=== PATIENT | female | born 1945 ===

== ENCOUNTER 2020-07-07 15:15 | Inpatient (IN) | payer OTHER ==
--- NOTE | 2020-07-07 16:06 | XRay Report ---
CHEST 2 VIEWS INDICATION / CLINICAL INFORMATION: Dyspnea. FINDINGS: SUPPORT DEVICES: None. HEART / MEDIASTINUM: No significant abnormality. LUNGS / PLEURA: Severe multifocal airspace pneumonia identified throughout both lungs. Signer Name: Rahul Caldwell MD Signed: 07/07/2020 4:01 PM Workstation Name: [id number]
[2020-07-07 16:26] LABS: Basophils % (Auto) 0.1 % (0.0-1.8); Eosinophils % (Auto) 0.1 % (0.0-4.3); Hematocrit 40.3 % (30.3-42.9); Hemoglobin 13.7 gm/dl (10.1-14.3); Lymphocytes # (Auto) 1.2 K/mm3 (1.2-5.4); Lymphocytes % (Auto) 18.5 % (13.4-35.0); Mean Corpuscular HGB Conc 34 % (30-34); Mean Corpuscular Volume 92 fl (79-97); Monocytes # (Auto) 0.7 K/mm3 (0.0-0.8); Monocytes % (Auto) 10.6 % (0.0-7.3); Platelet Count 247 K/mm3 (140-440); Red Blood Count 4.39 M/mm3 (3.65-5.03)
[2020-07-07 16:37] LABS: Alanine Aminotransferase 61 units/L (7-56); Albumin 3.5 g/dL (3.9-5); Blood Urea Nitrogen 11 mg/dL (7-17); Calcium 8.9 mg/dL (8.4-10.2); Hemolysis Index 3
[2020-07-07 16:38] LABS: BUN/Creatinine Ratio 18
[2020-07-07] MEDS ORDERED: SODIUM CHLORIDE 0.9% 1000 ML 1,000 ML IV ONE (19:45)
[2020-07-07] MEDS ORDERED: AZITHROMYCIN/NS 500 MG/250 ML 500 MG/250 ML BAG IV ONE (19:45)
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
[2020-07-07] MEDS ORDERED: cefTRIAXone/NS 1 GM/50 ML 1 GM/50 ML BAG IV ONE (20:25)
[2020-07-07 21:07] LABS: C-Reactive Protein 9.4 mg/dL (0.00-1.30)
[2020-07-07] MEDS ORDERED: ONDANSETRON 4 MG/2 ML INJ IV PRN (21:45)
[2020-07-07] MEDS ORDERED: oxyCODONE /ACETAMINOPHEN 5-325MG TAB PO PRN (21:45)
[2020-07-07] MEDS ORDERED: ACETAMINOPHEN 325 MG TAB PO PRN (21:45)
[2020-07-07] MEDS ORDERED: ALBUTEROL 2.5 MG/3 ML NEBU IH PRN (21:45)
[2020-07-07] MEDS ORDERED: POTASSIUM CHLORIDE ER 10 MEQ TAB PO ONE (21:48)
[2020-07-07] MEDS ORDERED: cefTRIAXone/NS 1 GM/50 ML 1 GM/50 ML BAG IV SCH (22:00)
[2020-07-07] MEDS ORDERED: ENOXAPARIN 60 MG/0.6 ML INJ SUB-Q SCH (22:00)
--- NOTE | 2020-07-07 22:35 | Cat Scan Report ---
CTA CHEST WITH IV CONTRAST INDICATION / CLINICAL INFORMATION: Shortness of breath, elevated D-dimer, Pneumonia. TECHNIQUE: Axial CT images were obtained through the chest after injection of 30 cc IV contrast. 3 plane MIP and /or 3D reconstructions were produced. All CT scans at this location are performed using CT dose reduc tion for ALARA by means of automated exposure control. COMPARISON: 07/07/2020 FINDINGS: PULMONARY ARTERIES: No pulmonary emboli. THORACIC AORTA: No significant abnormality. HEART: No significant abnormality. CORONARY ARTERIES: No significant calcification. PLEURA: No pleural effusion. No pneumothorax. LYMPH NODES: No significant adenopathy. LUNGS: There are multiple areas of pulmonary opacities/groundglass opacities throughout both lungs in a pattern most consistent with multifocal viral pneumonia. Consolidated airspace disease is noted wi thin both lower lobes posteriorly. ADDITIONAL FINDINGS: None. UPPER ABDOMEN: No acute findings. SKELETAL STRUCTURES: No significant osseous abnormality. IMPRESSION: 1. No CT evidence for pulmonary embolism. 2. Bilateral pulmonary groundglass opacities and bilateral lower lobe consolidation consistent with m ultifocal viral pneumonia. Signer Name: Tasha Cormier MD Signed: 07/07/2020 10:31 PM Workstation Name: [id number]
[2020-07-08] MEDS: dexAMETHasone 4 MG/ML VIAL IV SCH ×3 (00:02→22:27)
[2020-07-08] MEDS: DOCUSATE SODIUM 100 MG CAP PO SCH ×3 (00:03→22:28)
--- NOTE | 2020-07-08 00:05 | History and Physical Report ---
History of Present Illness Date of examination: 07/07/20 Date of admission: 07/07/20 21:50 Chief complaint: SOB History of present illness: 74-year-old female with history of hypertension questionable lung disease due to childhood environmental exposure who presents to [facility] ED with complaints of shortness of breath x2 weeks. States that she has been experiencing shortness of breath which is worse with exertion for the past 2 weeks. Endorses nonproductive intermittent cough. Denies fever, chills, short, chest pains, headache, loss of smell, loss of taste, nausea, vomiting, diarrhea, generalized weakness, or sick contact Past History Past Medical History: hypertension, other (?? childhood lung disease) Past Surgical History: No surgical history Social history: lives with family, full code. denies: smoking, alcohol abuse, IV drug use Family history: hypertension Medications and Allergies Allergies Allergy/AdvReac Type Severity Reaction Status Date / Time No Known Allergies Allergy Unverified 07/07/20 15:32 Active Meds: Active Medications Acetaminophen (Acetaminophen 325 Mg Tab) 650 mg PO Q4H PRN PRN Reason: Pain MILD(1-3)/Fever >100.5/KWONG Albuterol (Albuterol 2.5 Mg/3 Ml Nebu) 2.5 mg IH Q3HRT PRN PRN Reason: Shortness Of Breath Dexamethasone (Dexamethasone 4 Mg/Ml Vial) 4 mg IV Q12HR [facility] Last Admin: 07/08/20 00:02 Dose: 4 mg Documented by: Docusate Sodium (Docusate Sodium 100 Mg Cap) 100 mg PO BID [facility] Last Admin: 07/08/20 00:03 Dose: 100 mg Documented by: Enoxaparin Sodium (Enoxaparin 40 Mg/0.4 Ml Inj) 40 mg SUB-Q QDAY@2200 [facility]; Protocol Azithromycin 500 mg/ Sodium (Chloride) 250 mls @ 250 mls/hr IV Q24HR [facility]; Protocol Ceftriaxone Sodium (Rocephin/Ns 1 Gm/50 Ml) 1 gm in 50 mls @ 100 mls/hr IV Q 12HR [facility]; Protocol Ondansetron HCl (Ondansetron 4 Mg/2 Ml Inj) 4 mg IV Q6H PRN PRN Reason: Nausea And Vomiting Oxycodone/Acetaminophen (Oxycodone /Acetaminophen 5-325mg Tab) 1 tab PO Q6H PRN PRN Reason: Pain, Moderate (4-6) Sodium Chloride (Sodium Chloride 0.9% 10 Ml Flush Syringe) 10 ml IV BID [facility] Sodium Chloride (Sodium Chloride 0.9% 10 Ml Flush Syringe) 10 ml IV PRN PRN PRN Reason: LINE FLUSH Review of Systems All systems: negative (As noted in HPI) Exam - Physical Exam Narrative exam: Physical exam General appearance: Present: No acute distress, alert and oriented 3, older adult female - EENT Eyes: Present: PERRL, EOM intact ENT: hearing intact, normal dentition - Neck Neck: Present: supple, normal ROM - Respiratory Respiratory effort: Slightly labored with exertion Respiratory: Diminished bases, rhonchi - Cardiovascular Heart rate: 90 (bpm) Rhythm: Sinus Heart Sounds: Present: S1 & S2. Absent: rub, click - Extremities Extremities: no ischemia, pulses intact, - Peripheral Assessment Peripheral Pulses: within normal limits - Abdominal General gastrointestinal: soft, non-tender, normal bowel sounds - Integumentary Integumentary: Present: warm, dry - Musculoskeletal Musculoskeletal: Able to move all extremities -Neurological Neurological: CN II-XII intact - Psychiatric Psychiatric: Appropriate for situation ,cooperative - Constitutional Vitals: Temp Pulse Resp BP Pulse Ox 99.3 F 72 17 147/74 94 07/07/20 20:22 07/07/20 20:22 07/07/20 20:22 07/07/20 20:22 07/07/20 20:22 Results - Labs CBC & Chem 7: 07/07/20 16:02 07/07/20 19:45 Labs: Laboratory Last Values WBC 6.3 K/mm3 (4.5-11.0) 07/07/20 16:02 RBC 4.39 M/mm3 (3.65-5.03) 07/07/20 16:02 Hgb 13.7 gm/dl (10.1-14.3) 07/07/20 16:02 Hct 40.3 % (30.3-42.9) 07/07/20 16:02 MCV 92 fl (79-97) 07/07/20 16:02 MCH 31 pg (28-32) 07/07/20 16:02 MCHC 34 % (30-34) 07/07/20 16:02 RDW 13.0 % (13.2-15.2) L 07/07/20 16:02 Plt Count 247 K/mm3 (140-440) 07/07/20 16:02 Lymph % (Auto) 18.5 % (13.4-35.0) 07/07/20 16:02 [place] % (Auto) 10.6 % (0.0-7.3) H 07/07/20 16:02 Eos % (Auto) 0.1 % (0.0-4.3) 07/07/20 16:02 Baso % (Auto) 0.1 % (0.0-1.8) 07/07/20 16:02 Lymph # (Auto) 1.2 K/mm3 (1.2-5.4) 07/07/20 16:02 [place] # (Auto) 0.7 K/mm3 (0.0-0.8) 07/07/20 16:02 Eos # (Auto) 0.0 K/mm3 (0.0-0.4) 07/07/20 16:02 Baso # (Auto) 0.0 K/mm3 (0.0-0.1) 07/07/20 16:02 Seg Neutrophils % 70.7 % (40.0-70.0) H 07/07/20 16:02 Seg Neutrophils # 4.4 K/mm3 (1.8-7.7) 07/07/20 16:02 D-Dimer 423.42 ng/mlDDU (0-234) H 07/07/20 19:45 Sodium 141 mmol/L (137-145) 07/07/20 16:02 Potassium 3.2 mmol/L (3.6-5.0) L 07/07/20 16:02 Chloride 102.8 mmol/L (98-107) 07/07/20 16:02 Carbon Dioxide 28 mmol/L (22-30) 07/07/20 16:02 Anion Gap 13 mmol/L 07/07/20 16:02 BUN 11 mg/dL (7-17) 07/07/20 16:02 Creatinine 0.6 mg/dL (0.6-1.2) 07/07/20 16:02 Estimated GFR > 60 ml/min 07/07/20 16:02 BUN/Creatinine Ratio 18 % 07/07/20 16:02 Glucose 114 mg/dL (65-100) H 07/07/20 19:45 Calcium 8.9 mg/dL (8.4-10.2) 07/07/20 16:02 Ferritin 717.3 ng/mL (10.0-200.0) H 07/07/20 19:45 Total Bilirubin 0.30 mg/dL (0.1-1.2) 07/07/20 16:02 AST 76 units/L (5-40) H 07/07/20 16:02 ALT 61 units/L (7-56) H 07/07/20 16:02 Alkaline Phosphatase 136 units/L (35-129) H 07/07/20 16:02 Lactate Dehydrogenase 368 units/L (91-180) H 07/07/20 19:45 C-Reactive Protein 9.40 mg/dL (0.00-1.30) H 07/07/20 19:45 Total Protein 6.4 g/dL (6.3-8.2) 07/07/20 16:02 Albumin 3.5 g/dL (3.9-5) L 07/07/20 16:02 Albumin/Globulin Ratio 1.2 % 07/07/20 16:02 - Diagnostic Impressions Diagnostic Impressions: CT Chest: IMPRESSION: 1. No CT evidence for pulmonary embolism. 2. Bilateral pulmonary groundglass opacities and bilateral lower lobe consolidation consistent with multifocal viral pneumonia. CXR: LUNGS / PLEURA: Severe multifocal airspace pneumonia identified throughout both lungs. Chavez/IV: IV Catheter Type [Left INT / Saline Lock Antecubital] Assessment and Plan Assessment and plan: 74-year-old female with history of hypertension questionable lung disease due to childhood environmental exposure who presents to [facility] ED with complaints of shortness of breath x2 weeks. Suspected Covid 19 virus infection -Complains of shortness of breath worse with exertion x2 weeks -CXR shows very multifocal airspace disease -Isolated, initiate SAVANNAH -f/u labs -Start Decadron -ID consult pending -Supportive care Pneumonia -Likely due to to Covid 19 virus infection -CT chest shows Bilateral pulmonary groundglass opacities and bilateral lower lobe consolidation -Blood Cultures pending -Start on IV Abx Acute hypoxic respiratory failure -Likely due to Covid 19 virus infection -No Baseline home oxygen requirements -Saturation of 86% on room air -Currently on supplemental -Monitor saturations -Continue supplemental oxygen wean as tolerated Hypokalemia -Mild -Potassium on admission 3.2 -Ordered potassium replacement -Continue to monitor replete prn Elevated D-dimer -@423.42 -CT chest negative for PE -Likely due to COVID-19 virus infection -On DVT PPx subcu Lovenox Advance Directives: No VTE prophylaxis?: Chemical, Mechanical Plan of care discussed with patient/family: Yes
[2020-07-08] MEDS ORDERED: AZITHROMYCIN 500 MG in SODIUM CHLORIDE 0.9% 250ML 250 ML IV SCH (10:00)
[2020-07-08] MEDS ORDERED: cefTRIAXone/NS 1 GM/50 ML 1 GM/50 ML BAG IV SCH (10:00)
[2020-07-08 10:11] LABS: Basophils % (Auto) 0.1 % (0.0-1.8); Hematocrit 39.2 % (30.3-42.9); Hemoglobin 13.4 gm/dl (10.1-14.3); Lymphocytes # (Auto) 0.7 K/mm3 (1.2-5.4); Lymphocytes % (Auto) 16.1 % (13.4-35.0); Mean Corpuscular HGB Conc 34 % (30-34); Mean Corpuscular Volume 92 fl (79-97); Monocytes # (Auto) 0.2 K/mm3 (0.0-0.8); Monocytes % (Auto) 3.7 % (0.0-7.3); Platelet Count 248 K/mm3 (140-440); Red Blood Count 4.27 M/mm3 (3.65-5.03); Red Cell Distribution Width 13.2 % (13.2-15.2)
[2020-07-08 10:37] LABS: Blood Urea Nitrogen 9 mg/dL (7-17); Calcium 8.5 mg/dL (8.4-10.2); Hemolysis Index 18
[2020-07-08 10:38] LABS: BUN/Creatinine Ratio 18
--- NOTE | 2020-07-08 12:43 | Progress Note ---
Assessment and Plan -Suspected Covid 19 virus infection Awaits infectious disease evaluation. Await COVID-19 testing. -Supportive care -Pneumonia Continue on current antibiotics. -Acute hypoxic respiratory failure Possibly secondary to COVID-19 pneumonia We will keep oxygen saturation greater equal to 94%. -Hypokalemia Potassium repleted . Will monitor potassium level. DVT prophylaxis - subcu Lovenox Subjective Date of service: 07/08/20 Principal diagnosis: Suspected Covid 19 virus infection Interval history: 74-year-old female with history of hypertension questionable lung disease due to childhood environmental exposure who presents to [facility] ED with complaints of shortness of breath x2 weeks. States that she has been experiencing shortness of breath which is worse with exertion for the past 2 weeks. Endorses nonproductive intermittent cough. Denies fever, chills, short, chest pains, headache, loss of smell, loss of taste, nausea, vomiting, diarrhea, generalized weakness, or sick contact 07/08/2020 Lying comfortably in bed this morning. Denies any new complaints. Objective - Constitutional Vitals: Vital Signs - 12hr 07/08/20 07/08/20 01:10 04:19 Temperature 99.5 F 97.7 F Pulse Rate 83 83 Respiratory 20 16 Rate Blood Pressure 145/71 129/55 O2 Sat by Pulse 85 89 Oximetry General appearance: Present: no acute distress, well-nourished - EENT Eyes: PERRL, EOM intact ENT: hearing intact, clear oral mucosa Ears: bilateral: normal - Neck Neck: supple, normal ROM - Respiratory Respiratory effort: normal Respiratory: bilateral: CTA - Breasts Breasts: normal - Cardiovascular Heart rate: 83 Rhythm: regular Heart Sounds: Present: S1 & S2. Absent: gallop, rub Extremities: pulses intact, No edema, normal color, Full ROM - Gastrointestinal General gastrointestinal: Present: soft, non-tender, non-distended, normal bowel sounds - Genitourinary Female genitourinary: normal - Integumentary Integumentary: clear, warm, dry - Musculoskeletal Musculoskeletal: 1, strength equal bilaterally - Neurologic Neurologic: moves all extremities - Psychiatric Psychiatric: memory intact, appropriate mood/affect, intact judgment & insight - Labs CBC & Chem 7: 07/08/20 08:21 07/08/20 08:21 Labs: Abnormal lab results 07/07/20 07/07/20 07/07/20 Range/Units 16:02 16:02 19:45 WBC (4.5-11.0) K/mm3 RDW 13.0 L (13.2-15.2) % [place] % (Auto) 10.6 H (0.0-7.3) % Lymph # (Auto) (1.2-5.4) K/mm3 Seg Neutrophils % 70.7 H (40.0-70.0) % D-Dimer 423.42 H (0-234) ng/mlDDU Potassium 3.2 L (3.6-5.0) mmol/L Creatinine (0.6-1.2) mg/dL Glucose 113 H (65-100) mg/dL Ferritin (10.0-200.0) ng/mL AST 76 H (5-40) units/L ALT 61 H (7-56) units/L Alkaline Phosphatase 136 H (35-129) units/L Lactate Dehydrogenase (91-180) units/L C-Reactive Protein (0.00-1.30) mg/dL Albumin 3.5 L (3.9-5) g/dL 07/07/20 07/07/20 07/08/20 Range/Units 19:45 19:45 08:21 WBC 4.0 L (4.5-11.0) K/mm3 RDW (13.2-15.2) % [place] % (Auto) (0.0-7.3) % Lymph # (Auto) 0.7 L (1.2-5.4) K/mm3 Seg Neutrophils % 80.1 H (40.0-70.0) % D-Dimer (0-234) ng/mlDDU Potassium (3.6-5.0) mmol/L Creatinine (0.6-1.2) mg/dL Glucose 114 H (65-100) mg/dL Ferritin 717.3 H (10.0-200.0) ng/mL AST (5-40) units/L ALT (7-56) units/L Alkaline Phosphatase (35-129) units/L Lactate Dehydrogenase 368 H (91-180) units/L C-Reactive Protein 9.40 H (0.00-1.30) mg/dL Albumin (3.9-5) g/dL 01/13/21 Range/Units 08:21 WBC (4.5-11.0) K/mm3 RDW (13.2-15.2) % [place] % (Auto) (0.0-7.3) % Lymph # (Auto) (1.2-5.4) K/mm3 Seg Neutrophils % (40.0-70.0) % D-Dimer (0-234) ng/mlDDU Potassium (3.6-5.0) mmol/L Creatinine 0.5 L (0.6-1.2) mg/dL Glucose 203 H (65-100) mg/dL Ferritin (10.0-200.0) ng/mL AST (5-40) units/L ALT (7-56) units/L Alkaline Phosphatase (35-129) units/L Lactate Dehydrogenase (91-180) units/L C-Reactive Protein (0.00-1.30) mg/dL Albumin (3.9-5) g/dL
--- NOTE | 2020-07-08 14:10 | Consultation ---
History of Present Illness - Reason for Consult Consult date: 07/08/20 - History of Present Illness 74-year-old female past medical history hypertension, chronic lung disease clinic shortness of breath for the past 2 weeks. She also complains of cough, though she denies other symptoms such as fevers, chills. Afebrile since admission with a leukopenia of 4. Normal renal function and procalcitonin. Elevated liver enzymes. Elevated inflammatory markers. Covid pending. Blood cultures currently pending. Currently on ceftriaxone and azithromycin. Imaging personally reviewed: Chest CTA: No pulmonary embolism. Bilateral groundglass opacities Review of systems: Deferred due to PPE conservation strategy. Past History Past Medical History: hypertension, other (?? childhood lung disease) Past Surgical History: No surgical history Social history: lives with family, full code. denies: smoking, alcohol abuse, IV drug use Family history: hypertension Medications and Allergies Allergies Allergy/AdvReac Type Severity Reaction Status Date / Time No Known Allergies Allergy Unverified 07/07/20 15:32 Home Medications Medication Instructions Recorded Confirmed Last Taken Type No Known Home Medications [No 07/08/20 07/08/20 Unknown History Reported Home Medications] Active Meds: Active Medications Acetaminophen (Acetaminophen 325 Mg Tab) 650 mg PO Q4H PRN PRN Reason: Pain MILD(1-3)/Fever >100.5/KWONG Albuterol (Albuterol 2.5 Mg/3 Ml Nebu) 2.5 mg IH Q3HRT PRN PRN Reason: Shortness Of Breath Azithromycin (Azithromycin 250 Mg Tab) 500 mg PO QHS [facility] Stop: 07/11/20 22:01 Dexamethasone (Dexamethasone 4 Mg/Ml Vial) 4 mg IV Q12HR [facility] Last Admin: 07/08/20 10:32 Dose: 4 mg Documented by: Docusate Sodium (Docusate Sodium 100 Mg Cap) 100 mg PO BID [facility] Last Admin: 07/08/20 10:32 Dose: 100 mg Documented by: Enoxaparin Sodium (Enoxaparin 40 Mg/0.4 Ml Inj) 40 mg SUB-Q QDAY@2200 [facility]; Protocol Ceftriaxone Sodium (Rocephin/Ns 2 Gm/100 Ml) 2 gm in 100 mls @ 200 mls/hr IV Q24HR@2200 [facility] Ondansetron HCl (Ondansetron 4 Mg/2 Ml Inj) 4 mg IV Q6H PRN PRN Reason: Nausea And Vomiting Oxycodone/Acetaminophen (Oxycodone /Acetaminophen 5-325mg Tab) 1 tab PO Q6H PRN PRN Reason: Pain, Moderate (4-6) Sodium Chloride (Sodium Chloride 0.9% 10 Ml Flush Syringe) 10 ml IV BID [facility] Last Admin: 07/08/20 10:33 Dose: 10 ml Documented by: Sodium Chloride (Sodium Chloride 0.9% 10 Ml Flush Syringe) 10 ml IV PRN PRN PRN Reason: LINE FLUSH Physical Examination - Physical Exam Narrative exam: Physical exam deferred due to PPE conservation strategy. Please refer to primary team's note. - Constitutional Vitals: Vital Signs Temp Pulse Resp BP Pulse Ox 98.8 F 72 20 133/65 89 07/08/20 11:25 07/08/20 11:25 07/08/20 11:25 07/08/20 11:25 07/08/20 11:25 Temperature -Last 24 Hours Temperature 98.8 F Temperature 97.7 F Temperature 99.5 F Temperature 99.3 F Temperature 99.5 F Temperature 98.9 F Results - Labs CBC & Chem 7: 07/08/20 08:21 07/08/20 08:21 Labs: Abnormal lab results 07/07/20 07/07/20 07/07/20 Range/Units 16:02 16:02 19:45 WBC (4.5-11.0) K/mm3 RDW 13.0 L (13.2-15.2) % [place] % (Auto) 10.6 H (0.0-7.3) % Lymph # (Auto) (1.2-5.4) K/mm3 Seg Neutrophils % 70.7 H (40.0-70.0) % D-Dimer 423.42 H (0-234) ng/mlDDU Potassium 3.2 L (3.6-5.0) mmol/L Creatinine (0.6-1.2) mg/dL Glucose 113 H (65-100) mg/dL Ferritin (10.0-200.0) ng/mL AST 76 H (5-40) units/L ALT 61 H (7-56) units/L Alkaline Phosphatase 136 H (35-129) units/L Lactate Dehydrogenase (91-180) units/L C-Reactive Protein (0.00-1.30) mg/dL Albumin 3.5 L (3.9-5) g/dL 07/07/20 07/07/20 07/08/20 Range/Units 19:45 19:45 08:21 WBC 4.0 L (4.5-11.0) K/mm3 RDW (13.2-15.2) % [place] % (Auto) (0.0-7.3) % Lymph # (Auto) 0.7 L (1.2-5.4) K/mm3 Seg Neutrophils % 80.1 H (40.0-70.0) % D-Dimer (0-234) ng/mlDDU Potassium (3.6-5.0) mmol/L Creatinine (0.6-1.2) mg/dL Glucose 114 H (65-100) mg/dL Ferritin 717.3 H (10.0-200.0) ng/mL AST (5-40) units/L ALT (7-56) units/L Alkaline Phosphatase (35-129) units/L Lactate Dehydrogenase 368 H (91-180) units/L C-Reactive Protein 9.40 H (0.00-1.30) mg/dL Albumin (3.9-5) g/dL 07/08/20 Range/Units 08:21 WBC (4.5-11.0) K/mm3 RDW (13.2-15.2) % [place] % (Auto) (0.0-7.3) % Lymph # (Auto) (1.2-5.4) K/mm3 Seg Neutrophils % (40.0-70.0) % D-Dimer (0-234) ng/mlDDU Potassium (3.6-5.0) mmol/L Creatinine 0.5 L (0.6-1.2) mg/dL Glucose 203 H (65-100) mg/dL Ferritin (10.0-200.0) ng/mL AST (5-40) units/L ALT (7-56) units/L Alkaline Phosphatase (35-129) units/L Lactate Dehydrogenase (91-180) units/L C-Reactive Protein (0.00-1.30) mg/dL Albumin (3.9-5) g/dL Assessment and Plan Cultures: Blood culture pending Covid pending A/P: 74 yo F PMHx HTN, questionable chronic lung disease presents as COVID PUI with bilateral PNA #Bilateral pneumonia: COVID pending. No evidence of PE on CTPE, positive for bilateral groundglass and basilar opacities. #Elevated liver enzymes: if COVID positive presume secondary to that. #Leukopenia: if COVID positive presume secondary to that. Recs: -Follow up COID testing -If positive and hypoxic requiring supplemental O2 would give Remdesivir. -Stopped antibiotics due to normal procalcitonin. -Anticoagulation per hospital protocol -Proning as able Thank you for the consult, we will continue to follow. Salud Keyes MD [facility] ([facility] O: [phone] F: [phone]
[2020-07-08] MEDS ORDERED: AZITHROMYCIN 250 MG TAB PO SCH (22:00)
[2020-07-08] MEDS ORDERED: cefTRIAXone/NS 2 GM/100 ML 2 GM/100 ML BAG IV SCH (22:00)
[2020-07-08] MEDS: ENOXAPARIN 40 MG/0.4 ML INJ SUB-Q SCH (22:27)
[2020-07-09 06:08] LABS: Lymphocytes # (Auto) 0.6 K/mm3 (1.2-5.4); Lymphocytes % (Auto) 11.1 % (13.4-35.0); Mean Corpuscular HGB Conc 33 % (30-34); Mean Corpuscular Volume 92 fl (79-97); Monocytes # (Auto) 0.4 K/mm3 (0.0-0.8); Platelet Count 292 K/mm3 (140-440); Red Blood Count 4.24 M/mm3 (3.65-5.03); Red Cell Distribution Width 13.4 % (13.2-15.2)
[2020-07-09 06:22] LABS: INR 1.39 (0.87-1.13)
[2020-07-09 06:27] LABS: Blood Urea Nitrogen 15 mg/dL (7-17); Calcium 8.8 mg/dL (8.4-10.2); Hemolysis Index 0
[2020-07-09 06:30] LABS: BUN/Creatinine Ratio 25
[2020-07-09] MEDS: DOCUSATE SODIUM 100 MG CAP PO SCH ×2 (10:56→22:21)
[2020-07-09] MEDS: DEXAMETHASONE 4 MG TAB PO SCH (10:56)
--- NOTE | 2020-07-09 13:30 | Progress Note ---
Assessment and Plan -Suspected Covid 19 virus infection COVID-19 positive. Patient being followed by infectious disease. -Supportive care -Acute hypoxic respiratory failure Possibly secondary to COVID-19 pneumonia We will keep oxygen saturation greater equal to 94%. -Hypokalemia resolved. DVT prophylaxis - subcu Lovenox Subjective Date of service: 07/09/20 Principal diagnosis: Suspected Covid 19 virus infection Interval history: 74-year-old female with history of hypertension questionable lung disease due to childhood environmental exposure who presents to [facility] ED with complaints of shortness of breath x2 weeks. States that she has been experien cing shortness of breath which is worse with exertion for the past 2 weeks. Endorses nonproductive intermittent cough. Denies fever, chills, short, chest pains, headache, loss of smell, loss of tast e, nausea, vomiting, diarrhea, generalized weakness, or sick contact 07/09/2020 COVID-19 test positive. Currently being followed by infectious disease. Objective - Constitutional Vitals: Vital Signs - 12hr 07/09/20 05:57 Temperature 98.2 F Pulse Rate 67 Respiratory 16 Rate Blood Pressure 137/68 O2 Sat by Pulse 92 Oximetry General appearance: Present: no acute distress, well-nourished - EENT Eyes: PERRL, EOM intact ENT: hearing intact, clear oral mucosa Ears: bilateral: normal - Neck Neck: supple, normal ROM - Respiratory Respiratory effort: normal Respiratory: bilateral: diminished - Breasts Breasts: normal - Cardiovascular Rhythm: regular Heart Sounds: Present: S1 & S2. Absent: gallop, rub Extremities: pulses intact, No edema, normal color, Full ROM - Gastrointestinal General gastrointestinal: Present: soft, non-tender, non-distended, normal bowel sounds - Genitourinary Female genitourinary: normal - Integumentary Integumentary: clear, warm, dry - Musculoskeletal Musculoskeletal: 1, strength equal bilaterally - Neurologic Neurologic: moves all extremities - Psychiatric Psychiatric: memory intact, appropriate mood/affect, intact judgment & insight - Labs CBC & Chem 7: 07/09/20 05:00 07/09/20 05:00 Labs: Abnormal lab results 07/08/20 07/09/20 07/09/20 Range/Units 09:51 05:00 05:00 Lymph % (Auto) 11.1 L (13.4-35.0) % Lymph # (Auto) 0.6 L (1.2-5.4) K/mm3 Seg Neutrophils % 81.9 H (40.0-70.0) % PT 17.0 H (12.2-14.9) Sec. INR 1.39 H (0.87-1.13) Glucose (65-100) mg/dL Coronavirus (PCR) Positive A (Negative) 07/09/20 Range/Units 05:00 Lymph % (Auto) (13.4-35.0) % Lymph # (Auto) (1.2-5.4) K/mm3 Seg Neutrophils % (40.0-70.0) % PT (12.2-14.9) Sec. INR (0.87-1.13) Glucose 209 H (65-100) mg/dL Coronavirus (PCR) (Negative)
--- NOTE | 2020-07-09 15:00 | Progress Note ---
Assessment and Plan Cultures: Blood culture pending Covid positive A/P: 74 yo F PMHx HTN, questionable chronic lung disease presents as COVID PUI with bilateral PNA #Bilateral pneumonia: COVID pending. No evidence of PE on CTPE, positive for bilateral groundglass and basilar opacities. Normal procalcitonin #COVID-19: Elevate inflammatory markers, currently hypoxic. #Acute hypoxic respiratory failure #Elevated liver enzymes: Likely secondary to COVID-19 #Leukopenia: Likely secondary to COVID-19 Recs: -Started remdesivir for 5 days. Follow renal and hepatic function. Day 1 of 5. -Anticoagulation per hospital protocol -Proning as able -Follow every 48 inflammatory markers Thank you for the consult, we will continue to follow. Salud Keyes MD [facility] ([facility]) O: [phone] F: [phone] Subjective Date of service: 07/09/20 Principal diagnosis: Suspected Covid 19 virus infection Interval history: Afebrile, normal white count. No acute change. Covid positive. Objective - Exam Narrative Exam: Physical exam deferred due to PPE conservation strategy. Please refer to primary team's note. - Constitutional Vitals: Vital Signs Temp Pulse Resp BP Pulse Ox 98.2 F 67 16 137/68 92 07/09/20 05:57 07/09/20 05:57 07/09/20 05:57 07/09/20 05:57 07/09/20 05:57 Temperature -Last 24 Hours Temperature 98.2 F Temperature 98.4 F Temperature 98.7 F - Labs CBC & Chem 7: 07/09/20 05:00 07/09/20 05:00 Labs: Abnormal lab results 07/08/20 07/09/20 07/09/20 Range/Units 09:51 05:00 05:00 Lymph % (Auto) 11.1 L (13.4-35.0) % Lymph # (Auto) 0.6 L (1.2-5.4) K/mm3 Seg Neutrophils % 81.9 H (40.0-70.0) % PT 17.0 H (12.2-14.9) Sec. INR 1.39 H (0.87-1.13) Glucose (65-100) mg/dL Coronavirus (PCR) Positive A (Negative) 07/09/20 Range/Units 05:00 Lymph % (Auto) (13.4-35.0) % Lymph # (Auto) (1.2-5.4) K/mm3 Seg Neutrophils % (40.0-70.0) % PT (12.2-14.9) Sec. INR (0.87-1.13) Glucose 209 H (65-100) mg/dL Coronavirus (PCR) (Negative)
[2020-07-09] MEDS: SODIUM CHLORIDE 0.9% 50 ML IVPB IV SCH (16:54)
[2020-07-09] MEDS ORDERED: REMDESIVIR 100 MG VIAL IV ONE (17:00)
[2020-07-09] MEDS ORDERED: REMDESIVIR 200 MG in SODIUM CHLORIDE 0.9% 250ML 250 ML IV ONE (17:00)
[2020-07-09] MEDS: ENOXAPARIN 40 MG/0.4 ML INJ SUB-Q SCH (22:21)
[2020-07-10 05:59] LABS: Basophils % (Auto) 0.1 % (0.0-1.8); Hemoglobin 13.1 gm/dl (10.1-14.3); Lymphocytes % (Auto) 14.1 % (13.4-35.0); Mean Corpuscular HGB Conc 34 % (30-34); Mean Corpuscular Volume 92 fl (79-97); Monocytes # (Auto) 0.7 K/mm3 (0.0-0.8); Monocytes % (Auto) 9.6 % (0.0-7.3); Platelet Count 352 K/mm3 (140-440); Red Blood Count 4.22 M/mm3 (3.65-5.03)
[2020-07-10 06:10] LABS: INR 1.06 (0.87-1.13)
[2020-07-10 06:12] LABS: Blood Urea Nitrogen 21 mg/dL (7-17); Calcium 8.9 mg/dL (8.4-10.2); Hemolysis Index 3
[2020-07-10 06:16] LABS: BUN/Creatinine Ratio 35
[2020-07-10 06:18] LABS: Alanine Aminotransferase 38 units/L (7-56); Albumin 3.2 g/dL (3.9-5)
[2020-07-10 06:22] LABS: Bilirubin,Direct < 0.2 mg/dL (0-0.2)
[2020-07-10] MEDS: DOCUSATE SODIUM 100 MG CAP PO SCH ×2 (09:41→22:00)
[2020-07-10] MEDS: DEXAMETHASONE 4 MG TAB PO SCH (09:41)
--- NOTE | 2020-07-10 11:40 | Progress Note ---
Assessment and Plan Cultures: Blood culture pending Covid positive A/P: 74 yo F PMHx HTN, questionable chronic lung disease presents as COVID PUI with bilateral PNA #Bilateral pneumonia/COVID-19. No evidence of PE on CTPE, positive for bilateral groundglass and basilar opacities. Normal procalcitonin. Elevated inflammatory markers. #COVID-19: Elevate inflammatory markers, currently hypoxic. #Acute hypoxic respiratory failure #Elevated liver enzymes: Likely secondary to COVID-19 #Leukopenia: Likely secondary to COVID-19. Resolved Recs: -Started remdesivir for 5 days. Follow renal and hepatic function. Day 2 of 5. -Anticoagulation per hospital protocol -Proning as able -Follow every 48 inflammatory markers Okay for discharge from ID perspective when stable from a respiratory standpoint. Consider 6-minute walk test prior to discharge. No need to complete 5 days of remdesivir if improved. Thank you for the consult, we will continue to follow. Dr. Dalton taking over tomorrow. Salud Keyes MD [facility] ([facility]) O: [phone] F: [phone] Subjective Date of service: 07/10/20 Principal diagnosis: Suspected Covid 19 virus infection Interval history: Afebrile, normal white count. No other acute changes. Cultures remain negative. Objective - Exam Narrative Exam: Physical exam deferred due to PPE conservation strategy. Please refer to primary team's note. - Constitutional Vitals: Vital Signs Temp Pulse Resp BP Pulse Ox 99.0 F 62 16 147/67 91 07/10/20 06:09 07/10/20 06:09 07/10/20 06:09 07/10/20 06:09 07/10/20 06:09 Temperature -Last 24 Hours Temperature 99.0 F Temperature 99.3 F Temperature 98.0 F Temperature 98.6 F - Labs CBC & Chem 7: 07/10/20 05:03 07/10/20 05:03 Labs: Abnormal lab results 07/10/20 07/10/20 07/10/20 Range/Units 05:03 05:03 05:03 RDW 13.0 L (13.2-15.2) % [place] % (Auto) 9.6 H (0.0-7.3) % Lymph # (Auto) 1.0 L (1.2-5.4) K/mm3 Seg Neutrophils % 76.2 H (40.0-70.0) % D-Dimer 573.02 H (0-234) ng/mlDDU Sodium 147 H (137-145) mmol/L Chloride 113.2 H (98-107) mmol/L BUN 21 H (7-17) mg/dL Glucose 120 H (65-100) mg/dL Ferritin (10.0-200.0) ng/mL Lactate Dehydrogenase (91-180) units/L C-Reactive Protein (0.00-1.30) mg/dL Total Protein (6.3-8.2) g/dL Albumin (3.9-5) g/dL 07/10/20 07/10/20 Range/Units 05:03 05:03 RDW (13.2-15.2) % [place] % (Auto) (0.0-7.3) % Lymph # (Auto) (1.2-5.4) K/mm3 Seg Neutrophils % (40.0-70.0) % D-Dimer (0-234) ng/mlDDU Sodium (137-145) mmol/L Chloride (98-107) mmol/L BUN (7-17) mg/dL Glucose (65-100) mg/dL Ferritin 454.7 H (10.0-200.0) ng/mL Lactate Dehydrogenase 249 H (91-180) units/L C-Reactive Protein 3.90 H (0.00-1.30) mg/dL Total Protein 6.0 L (6.3-8.2) g/dL Albumin 3.2 L (3.9-5) g/dL
--- NOTE | 2020-07-10 13:03 | Progress Note ---
Assessment and Plan -Pneumonia secondary to COVID-19. Patient currently on remdesivir and Decadron Infectious disease following. -Acute hypoxic respiratory failure Possibly secondary to COVID-19 pneumonia We will keep oxygen saturation greater or equal to 94%. -Elevated liver enzymes. Possibly secondary to [id number] within normal limits We will monitor. DVT prophylaxis - subcu Lovenox Subjective Date of service: 07/10/20 Principal diagnosis: Suspected Covid 19 virus infection Interval history: 74-year-old female with history of hypertension questionable lung disease due to childhood environmental exposure who presents to [facility] ED with complaints of shortness of breath x2 weeks. States that she has been experiencing shortness of breath which is worse with exertion for the past 2 weeks. Endorses nonproductive intermittent cough. Denies fever, chills, short, chest pains, headache, loss of smell, loss of taste, nausea, vomiting, diarrhea, generalized weakness, or sick contact 07/09/2020 COVID-19 test positive. Currently being followed by infectious disease. 07/10/2020 Patient COVID-19 positive. Gets hypoxic on minimal exertion. Currently on oxygen. Infectious disease following. Objective - Constitutional Vitals: Vital Signs - 12hr 07/10/20 06:09 Temperature 99.0 F Pulse Rate 62 Respiratory 16 Rate Blood Pressure 147/67 O2 Sat by Pulse 91 Oximetry - Labs CBC & Chem 7: 07/10/20 05:03 07/10/20 05:03 Labs: Abnormal lab results 07/10/20 07/10/20 07/10/20 Range/Units 05:03 05:03 05:03 RDW 13.0 L (13.2-15.2) % [place] % (Auto) 9.6 H (0.0-7.3) % Lymph # (Auto) 1.0 L (1.2-5.4) K/mm3 Seg Neutrophils % 76.2 H (40.0-70.0) % D-Dimer 573.02 H (0-234) ng/mlDDU Sodium 147 H (137-145) mmol/L Chloride 113.2 H (98-107) mmol/L BUN 21 H (7-17) mg/dL Glucose 120 H (65-100) mg/dL Ferritin (10.0-200.0) ng/mL Lactate Dehydrogenase (91-180) units/L C-Reactive Protein (0.00-1.30) mg/dL Total Protein (6.3-8.2) g/dL Albumin (3.9-5) g/dL 07/10/20 07/10/20 Range/Units 05:03 05:03 RDW (13.2-15.2) % [place] % (Auto) (0.0-7.3) % Lymph # (Auto) (1.2-5.4) K/mm3 Seg Neutrophils % (40.0-70.0) % D-Dimer (0-234) ng/mlDDU Sodium (137-145) mmol/L Chloride (98-107) mmol/L BUN (7-17) mg/dL Glucose (65-100) mg/dL Ferritin 454.7 H (10.0-200.0) ng/mL Lactate Dehydrogenase 249 H (91-180) units/L C-Reactive Protein 3.90 H (0.00-1.30) mg/dL Total Protein 6.0 L (6.3-8.2) g/dL Albumin 3.2 L (3.9-5) g/dL
[2020-07-10] MEDS: REMDESIVIR 100 MG in SODIUM CHLORIDE 0.9% 250ML 250 ML IV SCH (21:00)
[2020-07-10] MEDS: SODIUM CHLORIDE 0.9% 50 ML IVPB IV SCH (21:30)
[2020-07-10] MEDS: ENOXAPARIN 40 MG/0.4 ML INJ SUB-Q SCH (22:00)
[2020-07-11] MEDS: DEXAMETHASONE 4 MG TAB PO SCH (11:33)
[2020-07-11] MEDS: DOCUSATE SODIUM 100 MG CAP PO SCH ×2 (11:34→22:45)
--- NOTE | 2020-07-11 14:08 | Progress Note ---
Assessment and Plan Assessment and plan: 74-year-old female patient with significant history of hypertension chronic lung disease was admitted through emergency room Initial evaluation is positive for bilateral pneumonia secondary to COVID-19 vir al infection, patient in isolation, ID is following --COVID-19 infection; Contact and droplet isolation Patient is hypoxic, on remdesivir total 5 days IV dexamethasone for total 10 days Home O2 evaluation Follow inflammatory markers Supportive care --Acute hypoxic respiratory failure; Oxygen titrate O2 sats more than 90% Covid protocols followed, Proning position --Transaminitis/elevated LFTs Trending down, Closely monitor --DVT prophylaxis;; Lovenox We will closely monitor the patient and adjust management as needed ID evaluation recommendations noted and appreciated Check home oxygen evaluation Possible discharge in 1 to 2 days if stable History Interval history: Patient is seen and examined at the bedside this morning Strict isolation precautions and PPE protocols followed Patient admitted with acute Covid infection In isolation precautions vital signs reviewed Hospitalist Physical - Constitutional Vitals: Temp Pulse Resp BP Pulse Ox 98.5 F 62 20 182/81 94 07/11/20 03:58 07/11/20 03:58 07/11/20 03:58 07/11/20 03:58 07/11/20 03:58 General appearance: Present: no acute distress, well-nourished - EENT Eyes: Present: PERRL, EOM intact - Neck Neck: Present: supple, normal ROM - Respiratory Respiratory effort: normal Respiratory: bilateral: diminished, rhonchi, negative: rales, wheezing - Cardiovascular Rhythm: regular Heart Sounds: Present: S1 & S2 - Extremities Extremities: no ischemia, No edema - Abdominal General gastrointestinal: soft, non-tender, non-distended - Integumentary Integumentary: Present: clear, warm - Psychiatric Psychiatric: appropriate mood/affect, cooperative - Neurologic Neurologic: moves all extremities Results - Labs CBC & Chem 7: 07/10/20 05:03 07/10/20 05:03 Labs: Laboratory Last Values WBC 7.4 K/mm3 (4.5-11.0) 07/10/20 05:03 RBC 4.22 M/mm3 (3.65-5.03) 07/10/20 05:03 Hgb 13.1 gm/dl (10.1-14.3) 07/10/20 05:03 Hct 39.0 % (30.3-42.9) 07/10/20 05:03 MCV 92 fl (79-97) 07/10/20 05:03 MCH 31 pg (28-32) 07/10/20 05:03 MCHC 34 % (30-34) 07/10/20 05:03 RDW 13.0 % (13.2-15.2) L 07/10/20 05:03 Plt Count 352 K/mm3 (140-440) 07/10/20 05:03 Lymph % (Auto) 14.1 % (13.4-35.0) 07/10/20 05:03 [place] % (Auto) 9.6 % (0.0-7.3) H 07/10/20 05:03 Eos % (Auto) 0.0 % (0.0-4.3) 07/10/20 05:03 Baso % (Auto) 0.1 % (0.0-1.8) 07/10/20 05:03 Lymph # (Auto) 1.0 K/mm3 (1.2-5.4) L 07/10/20 05:03 [place] # (Auto) 0.7 K/mm3 (0.0-0.8) 07/10/20 05:03 Eos # (Auto) 0.0 K/mm3 (0.0-0.4) 07/10/20 05:03 Baso # (Auto) 0.0 K/mm3 (0.0-0.1) 07/10/20 05:03 Seg Neutrophils % 76.2 % (40.0-70.0) H 07/10/20 05:03 Seg Neutrophils # 5.6 K/mm3 (1.8-7.7) 07/10/20 05:03 PT 13.6 Sec. (12.2-14.9) 07/10/20 05:03 INR 1.06 (0.87-1.13) 07/10/20 05:03 D-Dimer 573.02 ng/mlDDU (0-234) H 07/10/20 05:03 Sodium 147 mmol/L (137-145) H 07/10/20 05:03 Potassium 4.2 mmol/L (3.6-5.0) 07/10/20 05:03 Chloride 113.2 mmol/L (98-107) H 07/10/20 05:03 Carbon Dioxide 22 mmol/L (22-30) 07/10/20 05:03 Anion Gap 16 mmol/L 07/10/20 05:03 BUN 21 mg/dL (7-17) H 07/10/20 05:03 Creatinine 0.6 mg/dL (0.6-1.2) 07/10/20 05:03 Estimated GFR > 60 ml/min 07/10/20 05:03 BUN/Creatinine Ratio 35 % 07/10/20 05:03 Glucose 120 mg/dL (65-100) H 07/10/20 05:03 Calcium 8.9 mg/dL (8.4-10.2) 07/10/20 05:03 Ferritin 454.7 ng/mL (10.0-200.0) H 07/10/20 05:03 Total Bilirubin 0.30 mg/dL (0.1-1.2) 07/10/20 05:03 Direct Bilirubin < 0.2 mg/dL (0-0.2) 07/10/20 05:03 Indirect Bilirubin 0.1 mg/dL 07/10/20 05:03 AST 28 units/L (5-40) 07/10/20 05:03 ALT 38 units/L (7-56) 07/10/20 05:03 Alkaline Phosphatase 95 units/L (35-129) 07/10/20 05:03 Lactate Dehydrogenase 249 units/L (91-180) H 07/10/20 05:03 C-Reactive Protein 3.90 mg/dL (0.00-1.30) H 07/10/20 05:03 Total Protein 6.0 g/dL (6.3-8.2) L 07/10/20 05:03 Albumin 3.2 g/dL (3.9-5) L 07/10/20 05:03 Albumin/Globulin Ratio 1.1 % 07/10/20 05:03 Procalcitonin 0.12 ng/mL (<0.15) 07/07/20 20:26 Coronavirus (PCR) Positive (Negative) A 07/08/20 09:51 Microbiology: Microbiology 07/07/20 23:32 Peripheral/Venous Blood Culture - Preliminary NO GROWTH AFTER 72 HOURS 07/07/20 23:33 Peripheral/Venous Blood Culture - Preliminary NO GROWTH AFTER 72 HOURS Chavez/IV: Voiding Method Toilet IV Catheter Type [Left INT / Saline Lock Antecubital] Active Medications - Current Medications Current Medications: Generic Name Dose Route Start Last Admin Trade Name Freq PRN Reason Stop Dose Admin Acetaminophen 650 mg 07/07/20 21:45 Acetaminophen 325 Mg Tab PO Q4H PRN Pain MILD(1-3)/Fever >100.5/KWONG Albuterol 2.5 mg 07/07/20 21:45 Albuterol 2.5 Mg/3 Ml Nebu IH Q3HRT PRN Shortness Of Breath Dexamethasone 6 mg 07/09/20 10:00 07/10/20 09:41 Dexamethasone 4 Mg Tab PO 07/17/20 10:01 6 mg DAILY STEPH Administration Docusate Sodium 100 mg 07/07/20 22:00 07/10/20 22:00 Docusate Sodium 100 Mg Cap PO 100 mg BID STEPH Administration Enoxaparin Sodium 40 mg 07/08/20 22:00 07/10/20 22:00 Enoxaparin 40 Mg/0.4 Ml Inj SUB-Q 40 mg QDAY@2200 STEPH Administration Protocol REMDESIVIR 100 mg/ Sodium 250 mls @ 500 mls/hr 07/10/20 21:00 07/10/20 21:00 Chloride IV 07/13/20 21:29 500 mls/hr Q24HR@2100 STEPH Administration Ondansetron HCl 4 mg 07/07/20 21:45 Ondansetron 4 Mg/2 Ml Inj IV Q6H PRN Nausea And Vomiting Oxycodone/Acetaminophen 1 tab 07/07/20 21:45 Oxycodone /Acetaminophen 5-325mg Tab PO Q6H PRN Pain, Moderate (4-6) Sodium Chloride 10 ml 07/07/20 22:00 07/10/20 22:01 Sodium Chloride 0.9% 10 Ml Flush Syringe IV 10 ml BID STEPH Administration Sodium Chloride 10 ml 07/07/20 21:45 Sodium Chloride 0.9% 10 Ml Flush Syringe IV PRN PRN LINE FLUSH Sodium Chloride 50 ml 07/09/20 17:00 07/10/20 21:30 Sodium Chloride 0.9% 50 Ml Ivpb IV 07/13/20 21:01 50 ml Q24HR@2100 STEPH Administration
[2020-07-11] MEDS: ENOXAPARIN 40 MG/0.4 ML INJ SUB-Q SCH (22:44)
[2020-07-11] MEDS: REMDESIVIR 100 MG in SODIUM CHLORIDE 0.9% 250ML 250 ML IV SCH (22:45)
[2020-07-11] MEDS: SODIUM CHLORIDE 0.9% 50 ML IVPB IV SCH (22:45)
--- NOTE | 2020-07-12 09:47 | Progress Note ---
Assessment and Plan Cultures: Blood culture pending Covid positive A/P: 74 yo F PMHx HTN, questionable chronic lung disease presents as COVID PUI with bilateral PNA #Bilateral pneumonia/COVID-19. No evidence of PE on CTPE, positive for bilateral groundglass and basilar opacities. Normal procalcitonin. Elevated inflammatory markers. #COVID-19: Elevate inflammatory markers, slowly improving, currently hypoxic. #Acute hypoxic respiratory failure. Patient on 2 L nasal cannula. #Elevated liver enzymes: Likely secondary to COVID-19. Resolved #Leukopenia: Likely secondary to COVID-19. Resolved Recs: -Continue remdesivir. Day 4 of 5.. Follow renal and hepatic function. -Anticoagulation per hospital protocol -Proning as able -Follow every 48 inflammatory markers -Consider 6-minute walk test prior to discharge. No need to complete 5 days of remdesivir if improved. Erendira Dalton MD [facility] ([facility]) Office [phone] Subjective Date of service: 07/12/20 Principal diagnosis: COVID19 Interval history: Patient remains afebrile, on 2 L nasal cannula, no desaturations, no acute events overnight. Objective - Exam Narrative Exam: Physical exam deferred to minimize COVID-19 transmission during pandemic. ER and internal medicine physical examination notes reviewed. - Constitutional Vitals: Vital Signs Temp Pulse Resp BP Pulse Ox 97.8 F 59 L 18 157/67 91 07/12/20 05:15 07/12/20 05:15 07/12/20 05:15 07/12/20 05:15 07/12/20 05:15 Temperature -Last 24 Hours Temperature 97.8 F Temperature 98.1 F Temperature 98.1 F Temperature 97.6 F - Labs CBC & Chem 7: 07/10/20 05:03 07/10/20 05:03
[2020-07-12] MEDS: DOCUSATE SODIUM 100 MG CAP PO SCH ×2 (11:29→22:56)
[2020-07-12] MEDS: DEXAMETHASONE 4 MG TAB PO SCH (11:30)
--- NOTE | 2020-07-12 12:08 | Progress Note ---
Subjective Date of service: 07/12/20 Principal diagnosis: COVID19 Interval history: Assessment and plan: 74-year-old female patient with significant history of hypertension chronic lung disease was admitted through emergency room Initial evaluation is positive for bilateral pneumonia secondary to COVID-19 viral infection, patient in isolation, ID is following --COVID-19 infection; Contact and droplet isolation Patient is hypoxic, on remdesivir day 4 of 5 IV dexamethasone for total 10 days Home O2 evaluation Follow inflammatory markers Supportive care --Acute hypoxic respiratory failure; Oxygen titrate O2 sats more than 90% Patient is doing well on 2 L oxygen via nasal cannula Covid protocols followed, Proning position --Transaminitis/elevated LFTs Improved Continue to monitor while patient is on remdesivir --DVT prophylaxis;; Lovenox We will closely monitor the patient and adjust management as needed ID evaluation recommendations noted and appreciated Check home oxygen evaluation Possible discharge in 1 to 2 days if stable 07/12 patient is a non-Upper Sorbian speaking [place]ese female, awake alert and oriented, no apparent distress Lab results reviewed ID note reviewed History Interval history: Patient is seen and examined at the bedside this morning Strict isolation precautions and PPE protocols followed Patient admitted with acute Covid infection In isolation precautions vital signs reviewed Objective - Constitutional Vitals: Vital Signs - 12hr 07/12/20 05:15 Temperature 97.8 F Pulse Rate 59 L Respiratory 18 Rate Blood Pressure 157/67 O2 Sat by Pulse 91 Oximetry General appearance: Present: no acute distress - EENT Eyes: PERRL, EOM intact ENT: hearing intact - Neck Neck: supple, normal ROM - Respiratory Respiratory effort: normal Respiratory: bilateral: CTA - Cardiovascular Rhythm: regular Heart Sounds: Present: S1 & S2 Extremities: No edema - Gastrointestinal General gastrointestinal: Present: soft, non-tender Rectal Exam: deferred - Genitourinary Female genitourinary: deferred - Integumentary Integumentary: clear - Musculoskeletal Musculoskeletal: strength equal bilaterally - Neurologic Neurologic: no focal deficits - Psychiatric Psychiatric: appropriate mood/affect - Labs CBC & Chem 7: 07/10/20 05:03 07/10/20 05:03
[2020-07-12 13:03] LABS: C-Reactive Protein 1.4 mg/dL (0.00-1.30)
[2020-07-12] MEDS: SODIUM CHLORIDE 0.9% 50 ML IVPB IV SCH (22:56)
[2020-07-12] MEDS: REMDESIVIR 100 MG in SODIUM CHLORIDE 0.9% 250ML 250 ML IV SCH (22:56)
[2020-07-12] MEDS: ENOXAPARIN 40 MG/0.4 ML INJ SUB-Q SCH (22:56)
[2020-07-13 07:11] LABS: Alanine Aminotransferase 48 units/L (7-56); Albumin 2.8 g/dL (3.9-5); Blood Urea Nitrogen 19 mg/dL (7-17); Calcium 8.3 mg/dL (8.4-10.2); Hemolysis Index 12
[2020-07-13 07:21] LABS: BUN/Creatinine Ratio 38
[2020-07-13] MEDS: DOCUSATE SODIUM 100 MG CAP PO SCH (09:42)
[2020-07-13] MEDS: DEXAMETHASONE 4 MG TAB PO SCH (09:42)
--- NOTE | 2020-07-13 10:02 | Progress Note ---
Assessment and Plan Cultures: Blood culture pending Covid positive A/P: 74 yo F PMHx HTN, questionable chronic lung disease presents as COVID PUI with bilateral PNA #Bilateral pneumonia/COVID-19. No evidence of PE on CTPE, positive for bilateral groundglass and basilar opacities. Normal procalcitonin. Elevated inflammatory markers. #COVID-19: Elevate inflammatory markers, slowly improving, currently hypoxic. #Acute hypoxic respiratory failure. Patient on 2 L nasal cannula. #Elevated liver enzymes: Likely secondary to COVID-19. Resolved #Leukopenia: Likely secondary to COVID-19. Resolved #Bradycardia: Likely secondary to remdesivir Recs: -Monitor bradycardia, obtain EKG -Continue remdesivir. Day 5 of 5. Follow renal and hepatic function. -Anticoagulation per hospital protocol -Proning as able -Follow every 48 inflammatory markers -Consider 6-minute walk test prior to discharge. No need to complete 5 days of remdesivir if improved. Consider home O2 if patient does not pass walking test. Erendira Dalton MD [facility] ([facility]) Office [phone] Subjective Date of service: 07/13/20 Principal diagnosis: COVID19 Interval history: Patient remains on 2 L, no desaturations overnight, noted bradycardia on monitor. Objective - Exam Narrative Exam: Physical exam deferred to minimize COVID-19 transmission during pandemic. ER and internal medicine physical examination notes reviewed. - Constitutional Vitals: Vital Signs Temp Pulse Resp BP Pulse Ox 98.2 F 51 L 17 171/61 95 07/13/20 03:56 07/13/20 03:56 07/12/20 21:11 07/13/20 03:56 07/13/20 03:56 Temperature -Last 24 Hours Temperature 98.2 F Temperature 97.0 F Temperature 98.3 F - Labs CBC & Chem 7: 07/10/20 05:03 07/13/20 05:10 Labs: Abnormal lab results 07/12/20 07/12/20 07/12/20 Range/Units 12:15 12:15 12:15 D-Dimer 674.57 H (0-234) ng/mlDDU Chloride (98-107) mmol/L Carbon Dioxide (22-30) mmol/L BUN (7-17) mg/dL Creatinine (0.6-1.2) mg/dL Calcium (8.4-10.2) mg/dL Ferritin 424.1 H (10.0-200.0) ng/mL Lactate Dehydrogenase 262 H (91-180) units/L C-Reactive Protein 1.40 H (0.00-1.30) mg/dL Total Protein (6.3-8.2) g/dL Albumin (3.9-5) g/dL 07/13/20 Range/Units 05:10 D-Dimer (0-234) ng/mlDDU Chloride 113.7 H (98-107) mmol/L Carbon Dioxide 18 L (22-30) mmol/L BUN 19 H (7-17) mg/dL Creatinine 0.5 L (0.6-1.2) mg/dL Calcium 8.3 L (8.4-10.2) mg/dL Ferritin (10.0-200.0) ng/mL Lactate Dehydrogenase (91-180) units/L C-Reactive Protein (0.00-1.30) mg/dL Total Protein 5.8 L (6.3-8.2) g/dL Albumin 2.8 L (3.9-5) g/dL
--- NOTE | 2020-07-13 11:21 | Progress Note ---
Assessment and Plan Assessment and plan: 74-year-old female patient with significant history of hypertension chronic lung disease was admitted through emergency room Initial evaluation is positive for bilateral pneumonia secondary to COVID-19 vir al infection, patient in isolation, ID is following --COVID-19 infection; Contact and droplet isolation Patient is hypoxic, on remdesivir total 5 days IV dexamethasone for total 10 days Home O2 evaluation Follow inflammatory markers Supportive care --Acute hypoxic respiratory failure; Oxygen titrate O2 sats more than 90% Covid protocols followed, Proning position --Transaminitis/elevated LFTs Trending down, Closely monitor --DVT prophylaxis;; Lovenox We will closely monitor the patient and adjust management as needed ID evaluation recommendations noted and appreciated Check home oxygen evaluation Possible discharge in 1 to 2 days if stable Hospitalist Physical - Constitutional Vitals: Temp Pulse Resp BP Pulse Ox 98.2 F 51 L 17 171/61 95 07/13/20 03:56 07/13/20 03:56 07/12/20 21:11 07/13/20 03:56 07/13/20 03:56 General appearance: Present: no acute distress Results - Labs CBC & Chem 7: 07/10/20 05:03 07/13/20 05:10 Labs: Laboratory Last Values WBC 7.4 K/mm3 (4.5-11.0) 07/10/20 05:03 RBC 4.22 M/mm3 (3.65-5.03) 07/10/20 05:03 Hgb 13.1 gm/dl (10.1-14.3) 07/10/20 05:03 Hct 39.0 % (30.3-42.9) 07/10/20 05:03 MCV 92 fl (79-97) 07/10/20 05:03 MCH 31 pg (28-32) 07/10/20 05:03 MCHC 34 % (30-34) 07/10/20 05:03 RDW 13.0 % (13.2-15.2) L 07/10/20 05:03 Plt Count 352 K/mm3 (140-440) 07/10/20 05:03 Lymph % (Auto) 14.1 % (13.4-35.0) 07/10/20 05:03 [place] % (Auto) 9.6 % (0.0-7.3) H 07/10/20 05:03 Eos % (Auto) 0.0 % (0.0-4.3) 07/10/20 05:03 Baso % (Auto) 0.1 % (0.0-1.8) 07/10/20 05:03 Lymph # (Auto) 1.0 K/mm3 (1.2-5.4) L 07/10/20 05:03 [place] # (Auto) 0.7 K/mm3 (0.0-0.8) 07/10/20 05:03 Eos # (Auto) 0.0 K/mm3 (0.0-0.4) 07/10/20 05:03 Baso # (Auto) 0.0 K/mm3 (0.0-0.1) 07/10/20 05:03 Seg Neutrophils % 76.2 % (40.0-70.0) H 07/10/20 05:03 Seg Neutrophils # 5.6 K/mm3 (1.8-7.7) 07/10/20 05:03 PT 13.6 Sec. (12.2-14.9) 07/10/20 05:03 INR 1.06 (0.87-1.13) 07/10/20 05:03 D-Dimer 674.57 ng/mlDDU (0-234) H 07/12/20 12:15 Sodium 140 mmol/L (137-145) 07/13/20 05:10 Potassium 3.8 mmol/L (3.6-5.0) 07/13/20 05:10 Chloride 113.7 mmol/L (98-107) H 07/13/20 05:10 Carbon Dioxide 18 mmol/L (22-30) L 07/13/20 05:10 Anion Gap 12 mmol/L 07/13/20 05:10 BUN 19 mg/dL (7-17) H 07/13/20 05:10 Creatinine 0.5 mg/dL (0.6-1.2) L 07/13/20 05:10 Estimated GFR > 60 ml/min 07/13/20 05:10 BUN/Creatinine Ratio 38 % 07/13/20 05:10 Glucose 89 mg/dL (65-100) 07/13/20 05:10 Calcium 8.3 mg/dL (8.4-10.2) L 07/13/20 05:10 Ferritin 424.1 ng/mL (10.0-200.0) H 07/12/20 12:15 Total Bilirubin 0.20 mg/dL (0.1-1.2) 07/13/20 05:10 Direct Bilirubin < 0.2 mg/dL (0-0.2) 07/10/20 05:03 Indirect Bilirubin 0.1 mg/dL 07/10/20 05:03 AST 31 units/L (5-40) 07/13/20 05:10 ALT 48 units/L (7-56) 07/13/20 05:10 Alkaline Phosphatase 81 units/L (35-129) 07/13/20 05:10 Lactate Dehydrogenase 262 units/L (91-180) H 07/12/20 12:15 C-Reactive Protein 1.40 mg/dL (0.00-1.30) H 07/12/20 12:15 Total Protein 5.8 g/dL (6.3-8.2) L 07/13/20 05:10 Albumin 2.8 g/dL (3.9-5) L 07/13/20 05:10 Albumin/Globulin Ratio 0.9 % 07/13/20 05:10 Procalcitonin 0.12 ng/mL (<0.15) 07/07/20 20:26 Coronavirus (PCR) Positive (Negative) A 07/08/20 09:51 Microbiology: Microbiology 07/07/20 23:32 Peripheral/Venous Blood Culture - Final NO GROWTH AFTER 5 DAYS 07/07/20 23:33 Peripheral/Venous Blood Culture - Final NO GROWTH AFTER 5 DAYS Chavez/IV: Voiding Method Toilet IV Catheter Type [Left INT / Saline Lock Antecubital] Active Medications - Current Medications Current Medications: Generic Name Dose Route Start Last Admin Trade Name Freq PRN Reason Stop Dose Admin Acetaminophen 650 mg 07/07/20 21:45 Acetaminophen 325 Mg Tab PO Q4H PRN Pain MILD(1-3)/Fever >100.5/KWONG Albuterol 2.5 mg 07/07/20 21:45 Albuterol 2.5 Mg/3 Ml Nebu IH Q3HRT PRN Shortness Of Breath Dexamethasone 6 mg 07/09/20 10:00 07/13/20 09:42 Dexamethasone 4 Mg Tab PO 07/17/20 10:01 6 mg DAILY STEPH Administration Docusate Sodium 100 mg 07/07/20 22:00 07/13/20 09:42 Docusate Sodium 100 Mg Cap PO 100 mg BID STEPH Administration Enoxaparin Sodium 40 mg 07/08/20 22:00 07/12/20 22:56 Enoxaparin 40 Mg/0.4 Ml Inj SUB-Q 40 mg QDAY@2200 STEPH Administration Protocol REMDESIVIR 100 mg/ Sodium 250 mls @ 500 mls/hr 07/10/20 21:00 07/12/20 22:56 Chloride IV 07/13/20 21:29 500 mls/hr Q24HR@2100 STEPH Administration Ondansetron HCl 4 mg 07/07/20 21:45 Ondansetron 4 Mg/2 Ml Inj IV Q6H PRN Nausea And Vomiting Oxycodone/Acetaminophen 1 tab 07/07/20 21:45 Oxycodone /Acetaminophen 5-325mg Tab PO Q6H PRN Pain, Moderate (4-6) Sodium Chloride 10 ml 07/07/20 22:00 07/13/20 09:43 Sodium Chloride 0.9% 10 Ml Flush Syringe IV 10 ml BID STEPH Administration Sodium Chloride 10 ml 07/07/20 21:45 Sodium Chloride 0.9% 10 Ml Flush Syringe IV PRN PRN LINE FLUSH Sodium Chloride 50 ml 07/09/20 17:00 07/12/20 22:56 Sodium Chloride 0.9% 50 Ml Ivpb IV 07/13/20 21:01 50 ml Q24HR@2100 STEPH Administration
--- NOTE | 2020-07-13 16:36 | Discharge Summary ---
Providers - Providers Date of Admission: 07/10/20 08:13 Date of discharge: 07/13/20 Attending physician: ELAINE LARSEN 07/07/20 21:45 Consult to Physician [CONS] Routine Comment: Consulting Provider: SHIRLENE GARCIA Physician Instructions: Reason For Exam: covid, coivd pna Primary care physician: SANTOS IBANEZ Hospitalization Condition: Stable Disposition: DC-01 TO HOME OR SELFCARE Time spent for discharge: 32 min Core Measure Documentation - Palliative Care Palliative Care/ Comfort Measures: Not Applicable - Core Measures Any of the following diagnoses?: none Exam - Constitutional Vitals: Temp Pulse Resp BP Pulse Ox 98.4 F 57 L 20 123/58 92 07/13/20 11:19 07/13/20 11:19 07/13/20 11:19 07/13/20 11:19 07/13/20 11:19 General appearance: Present: no acute distress, well-nourished - EENT Eyes: Present: PERRL, EOM intact - Neck Neck: Present: supple, normal ROM - Respiratory Respiratory effort: normal Respiratory: bilateral: diminished, negative: rales, rhonchi, wheezing - Cardiovascular Rhythm: regular Heart Sounds: Present: S1 & S2 - Extremities Extremities: no ischemia, No edema - Abdominal General gastrointestinal: Present: soft, non-tender, non-distended, normal bowel sounds - Integumentary Integumentary: Present: clear, warm - Musculoskeletal Musculoskeletal: strength equal bilaterally, generalized weakness - Psychiatric Psychiatric: appropriate mood/affect, cooperative - Neurologic Neurologic: moves all extremities Plan Activity: advance as tolerated, fall precautions Diet: other (cardiac diet) Additional Instructions: Home oxygen is already set up, he is home oxygen as needed. Have worsening symptoms contact MD or go to emergency room. Strictly follow COVID-19 protocols as instructed by discharge nurse. Advised to see PMD in 3 to 5 days Follow up with: SANTOS IBANEZ MD [Primary Care Provider] - 3-5 Days Prescriptions: Docusate Sodium [Colace CAP] 100 mg PO BID PRN #20 capsule PRN Reason: Constipation Dexamethasone 6 mg PO DAILY #5 tablet Albuterol Mdi (or & Nicu Only) [ProAir HFA Inhaler] 2 puff IH QID PRN #8.5 gram PRN Reason: Shortness Of Breath Pantoprazole [Protonix] 40 mg PO QDAY #14 tablet
[2020-07-13] MEDS: REMDESIVIR 100 MG in SODIUM CHLORIDE 0.9% 250ML 250 ML IV SCH (18:33)
[2020-07-13] MEDS: SODIUM CHLORIDE 0.9% 50 ML IVPB IV SCH (18:36)
[2020-07-13 18:59] VITALS: BP 141/70
== END 2020-07-13 21:40 | disposition home or self-care (01) | DRG 177 ==
LOC: ED 15:15 → 3A 21:50 → OBSVTOIN 07-10 08:13
PROVIDERS: ADMIT Hospitalist; ATTEND Internal Medicine
PROC: XW033E5 Introduction of Remdesivir Anti-infective into Peripheral Vein, Percutaneous Approach, New Technology Group 5 (ICD-10-PCS; principal; 2020-07-09)
DX: U07.1 COVID-19 (principal); J96.01 Acute respiratory failure with hypoxia; J12.82 Pneumonia due to coronavirus disease 2019; I10 Essential (primary) hypertension; J98.4 Other disorders of lung; R74.01 Elevation of levels of liver transaminase levels; R00.1 Bradycardia, unspecified; D72.819 Decreased white blood cell count, unspecified; E87.6 Hypokalemia; Z82.49 Family history of ischemic heart disease and other diseases of the circulatory system
CPT/HCPCS: 36415; 71046; 71275; 80048; 80053; 80076; 82728; 82947; 83520; 83615; 84145; 85025; 85379; 85610; 86140; 87040; 96365; 96366; 96368; G0378; J0456; J0696; J1100; J1650; J7030; J8540; Q9967; U0003